=== PATIENT | female | born 1970 | race Two or more races ===

== ENCOUNTER 2025-03-11 16:03 | Emergency (ER) | payer OTHER ==
[~2025-03-11] VITALS: Ht 167.6 cm; Wt 79.4 kg
[2025-03-11] MEDS ORDERED: SYNTHROID175 MCG PO (16:11)
[2025-03-11] MEDS ORDERED: KETOROLAC TROMETHAMINE 30 MG VIAL IM ONE (16:45)
[2025-03-11] MEDS ORDERED: KETOROLAC TROMETHAMINE 30 MG VIAL ONE (17:12)
[2025-03-11] MEDS ORDERED: LIDOCAINE HCL 1% 10ML VIAL ONE (17:13)
== END 2025-03-11 18:07 | disposition home or self-care (01) ==
LOC: ER 16:50
DX: S51.011A Laceration without foreign body of right elbow, initial encounter (principal); W19.XXXA Unspecified fall, initial encounter; Y93.89 Activity, other specified; Y92.89 Other specified places as the place of occurrence of the external cause; Y99.8 Other external cause status; E03.8 Other specified hypothyroidism; Z88.8 Allergy status to other drugs, medicaments and biological substances